=== PATIENT | male | born 1985 | race African-American/Black ===

== ENCOUNTER 2019-04-09 09:15 | Emergency (ER) | payer SELFPAY ==
[2019-04-09] MEDS ORDERED: Lidocaine 1% w/Epinephrine 1:100K 20 ML VIAL ONE (09:32)
== END 2019-04-09 10:00 | disposition home or self-care (01) ==
LOC: MADERS 09:15
DX: L02.01 Cutaneous abscess of face (principal); F17.210 Nicotine dependence, cigarettes, uncomplicated
CPT/HCPCS: 10060